=== PATIENT | male | born 1985 | race Caucasian/White ===

== ENCOUNTER 2016-10-29 23:52 | Emergency (ER) | payer OTHER ==
[2016-10-30] MEDS ORDERED: POLYMYXIN B SULFATE/TMP OPH SOLN (10 ML/ER DISP) OU PRN (01:43)
--- NOTE | 2016-10-30 01:46 | ER Document Report ---
[id number] Notes: Patient is a 31 year old male who presents with complaint of pain in his right eye. He is in the . He says the pain first started partly 5 days ago. He had some redness in his eye. [facility] Acuvue eyed[facility]. These were not antibiotic eyedrops. He says in the same dry eyedrops he can buy [id number]. Redness and irritation is gone worse in the right eye and now he started to live redness to left eye. 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 He does not work around metal grinding and has not been around any welding. He's had no fevers. He has no other complaints at this time. No personal or family history of glaucoma. No blurred vision. - Related Data Allergies/Adverse Reactions: No Known Allergies Allergy (Unverified 10/30/16 00:16) Past Medical History - Social History Smoking Status: Never Smoker Frequency of alcohol use: None Drug Abuse: None Family History: Reviewed & Not Pertinent Renal/ Medical History: Denies: Hx Peritoneal Dialysis Review of Systems - Review of Systems Notes: My Normal Review Basic REVIEW OF SYSTEMS: CONSTITUTIONAL : Denies fever, chills, or sweats. Denies recent illness. EENT: erythema and watery drainage to the right eye. MUSCULOSKELETAL: Denies neck or back pain or joint pain or swelling. SKIN: Denies rash or skin lesions. NEUROLOGICAL: Denies altered mental status or loss of consciousness. Denies headache. Denies weakness or paralysis or loss of use of either side. Denies problems with gait or speech. Denies sensory or motor loss. ALL OTHER SYSTEMS REVIEWED AND NEGATIVE. Physical Exam - Vital signs Vitals: Temp Pulse Resp BP Pulse Ox 97.9 F 79 16 133/80 H 98 10/30/16 00:17 10/30/16 00:17 10/30/16 00:17 10/30/16 00:17 10/30/16 00:17 - Notes Notes: General Appearance: Well nourished, alert, cooperative, no acute distress, no obvious discomfort. Vitals: reviewed, See vital signs table. Head: no swelling or tenderness to the head Eyes: Good extraocular motion without pain. No pain with sexual ocular motion. Pupils are equal and reactive to light and accommodation. Patient has significant conjunctival erythema. He has a lot of clear drainage from the eye. Exam is consistent with pinkeye. I did do forcing staining of the right eye. There is no uptake. Patient has mild erythema of the conjunctiva of the left eye. Mouth: No decreasd moisture Skin: warm, dry, appropriate color, no rash Neuro: speech clear, oriented x 3, normal affect, responds appropriately to questions. Course - Vital Signs Vital signs: Temp Pulse Resp BP Pulse Ox 97.7 F 82 16 130/78 H 99 10/30/16 02:11 10/30/16 02:11 10/30/16 02:11 10/30/16 02:11 10/30/16 02:11 - Transfer of Care Notes: 10/30/16 07:10 Patient's physical exam findings are consistent with conjunctivitis. I will place him on antibiotic eyedrops. I will give him referral to ophthalmology to follow up in 2 days to make sure that his eyes are clearing. Informed him that his eyes are not improving that he really must follow-up with the parcel post carrier or return to ER so we can reevaluate him. I see no evidence of foreign body or abrasion. She agrees with plan will be discharged home. Visual acuity is equal in both eyes. Dictation of this chart was performed using voice recognition software; therefore, there may be some unintended grammatical errors. Discharge - Discharge Clinical Impression: Conjunctivitis Qualifiers: Conjunctivitis type: acute Acute conjunctivitis type: unspecified Laterality: bilateral Qualified Code(s): H10.33 - Unspecified acute conjunctivitis, bilateral Condition: Good Disposition: HOME, SELF-CARE Additional Instructions: Conjunctivitis You have an infection in your eye, commonly known as "pink eye." Conjunctivitis causes redness, mild discomfort, itching, and mattering on the eyelids. It is very contagious, so you must be careful to wash your hands after touching your face so you don't pass the infection on to others. Conjunctivitis is caused by both viruses and bacteria. It usually responds quickly to treatment with antibiotic drops. These should be placed in the eye as prescribed (usually every three to four hours while you're awake). If you wear contact lenses, don't put them in your eyes until the infection is cleared and you are no longer using the drops (unless your doctor advises you otherwise). Should you develop increasing eye pain, severe swelling, decreased vision, or fail to improve as expected, please return for re-examination. Please follow-up with the parcel post carrier, Dr. Muller, for reevaluation. Please follow-up with him in 2-3 days. Please return to ER immediately if the redness is worsening, he have increasing pain, or feel the eyes get worse. Please use the eyedrops as one drop every 3 hours for 7 days. I would apply the drops to both eyes being that your left eye is now starting to have some mild redness as well. Referrals: AILEEN MULLER MD [ACTIVE STAFF] - 11/01/16
[2016-10-30 02:14] VITALS: BP 130/78
== END 2016-10-30 02:10 | disposition home or self-care (01) ==
LOC: ER 23:52
DX: H10.33 Unspecified acute conjunctivitis, bilateral (principal)
CPT/HCPCS: 99283; J3490